=== PATIENT | male | born 1960 ===

== ENCOUNTER 2016-11-09 12:23 | Inpatient (IN) | payer OTHER ==
[~2016-11-09] VITALS: Ht 182.9 cm; Wt 63.5 kg
[2016-11-09 14:17] VITALS: BP 123/83
[2016-11-09] MEDS ORDERED: AMANTADINE PO (16:05)
[2016-11-09] MEDS ORDERED: aspirin PO (16:09)
[2016-11-09] MEDS ORDERED: atorvastatin PO (16:11)
[2016-11-09] MEDS ORDERED: lovenox SUBCUT (16:13)
[2016-11-09] MEDS ORDERED: metoprolol PO (16:15)
[2016-11-09] MEDS ORDERED: seroquel PO (16:20)
[2016-11-09] MEDS ORDERED: thiamine PO (16:21)
[2016-11-09] MEDS ORDERED: hydralazine PO (16:24)
--- NOTE | 2016-11-09 19:30 | NUR ---
Received report from WILLIAM Gooden. Received patient standing next to the bed. Patient is alert and verbally responsive. Able to make needs known. Denies any pain and discomfort at this time. No acute distress noted. No SOB. Patient is on room air. Reminded patient to becareful and to call for help when assistance is needed. Verbalized understanding. All needs attended to promptly. Call light is within reach. Bed in low position. Will continue to monitor.
[2016-11-09 20:00] VITALS: BP 133/88
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
[2016-11-09] MEDS: ATORVASTATIN 40 MG TABLET PO SCH (20:56)
[2016-11-09] MEDS: AMANTADINE HCL 100 MG CAPSULE PO SCH (20:56)
[2016-11-09] MEDS: QUETIAPINE FUMARATE 200 MG TABLET PO SCH (20:57)
[2016-11-09] MEDS: METOPROLOL TARTRATE 50 MG TABLET PO SCH (20:57)
[2016-11-09] MEDS ORDERED: QUETIAPINE FUMARATE 200 MG TABLET PO SCH (21:00)
[2016-11-09] MEDS: Z GUARD REMEDY PASTE 57 GM TUBE TOP SCH (21:06)
--- NOTE | 2016-11-10 06:35 | NUR ---
Patient awake at this time. Slept comfortably throughout the night. No c/o pain and discomfort. No acute distress. No SOB. All needs attended to promptly. Call light within reach. Will continue to monitor.
[2016-11-10 06:58] LABS: BASOPHILS % (AUTO) 0.5 % (0.0-2.0); EOSINOPHILS # (AUTO) 0.1 K/uL (0.0-0.7); HEMATOCRIT 35.6 % (40-50); HEMOGLOBIN 12.1 G/DL (14.0-18.0); LYMPHOCYTES # (AUTO) 0.7 K/UL (0.8-4.8); LYMPHOCYTES % (AUTO) 13.9 % (20.5-51.5); MEAN CORPUSCULAR HEMOGLOBIN 31.1 UUG (27.0-31.0); MEAN CORPUSCULAR HGB CONC 34 g/dL (32.0-37.0); MEAN CORPUSCULAR VOLUME 91.8 FL (82.0-92.0); MONOCYTES # (AUTO) 0.6 K/UL (0.1-1.30); NEUTROPHILS # (AUTO) 3.8 K/UL (1.8-8.9); NEUTROPHILS % (AUTO) 72.6 % (38.5-71.5); PLATELET COUNT (AUTO) 109 K/UL (150-450); RED BLOOD CELL COUNT(AUTO) 3.88 MIL/UL (4.7-6.1); WHITE BLOOD COUNT (AUTO) 5.2 K/UL (4.0-11.2)
[2016-11-10 07:17] LABS: THYROID STIMULATING HORMONE 4.202 mIU/mL (0.358-3.740)
[2016-11-10 07:45] LABS: ALBUMIN 3.3 g/dL (3.4-5.0); BILIRUBIN,TOTAL 0.6 mg/dL (0.2-1.0); CREATININE 1.2 mg/dL (0.6-1.3); PHOSPHOROUS 4.5 mg/dL (2.5-4.9); POTASSIUM 4.3 mmol/L (3.5-5.1); TOTAL PROTEIN, SERUM 6.8 g/dL (6.4-8.2)
[2016-11-10] MEDS: THIAMINE HCL 100 MG TABLET PO SCH (08:43)
[2016-11-10] MEDS: AMANTADINE HCL 100 MG CAPSULE PO SCH ×2 (08:43→21:01)
[2016-11-10] MEDS: ASPIRIN 325 MG TABLET PO SCH (08:43)
[2016-11-10] MEDS: QUETIAPINE FUMARATE 200 MG TABLET PO SCH ×2 (08:43→21:02)
[2016-11-10] MEDS: METOPROLOL TARTRATE 50 MG TABLET PO SCH ×2 (08:48→21:02)
[2016-11-10] MEDS: Z GUARD REMEDY PASTE 57 GM TUBE TOP SCH ×2 (08:49→21:03)
[2016-11-10] MEDS ORDERED: ASPIRIN 325 MG PO SCH (09:00)
[2016-11-10] MEDS ORDERED: AMANTADINE 100 MG PO SCH (09:00)
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
--- NOTE | 2016-11-10 19:30 | NUR ---
Received report from WILLIAM Gooden. Received patient in his room ambulating. Alert and verbally responsive. Able to make needs known. Patient speaks very fast. No c/o pain and discomfort at this time. No acute distress. No SOB. On room air. Kept clean and dry. All needs attended to promptly. Call light within reach. Will continue to monitor.
[2016-11-10 20:00] VITALS: BP 123/79
[2016-11-10] MEDS: ATORVASTATIN 40 MG TABLET PO SCH (21:02)
--- NOTE | 2016-11-11 06:00 | NUR ---
Patient awake at this time. Laying in bed. Slept comfortably through out the night. Denies any pain and discomfort at this time. No acute distress. No SOB. Kept clean and dry. All needs attended to promptly. Bed in low position. Call light within reach. Will continue to monitor.
[2016-11-11 08:03] VITALS: BP 137/95
--- NOTE | 2016-11-11 08:20 | NUR ---
Received patient up in bed. Verbally hyperactive. Verbalizes wanting to go home to . Has been going out of bed and room often. Ensured safety. Is cooperative with medications. Will follow up psychiatric consult as ordered.
[2016-11-11] MEDS: AMANTADINE HCL 100 MG CAPSULE PO SCH ×2 (08:41→21:18)
[2016-11-11] MEDS: QUETIAPINE FUMARATE 200 MG TABLET PO SCH (08:41)
[2016-11-11] MEDS: ASPIRIN 325 MG TABLET PO SCH (08:41)
[2016-11-11] MEDS: THIAMINE HCL 100 MG TABLET PO SCH (08:42)
[2016-11-11] MEDS: METOPROLOL TARTRATE 50 MG TABLET PO SCH ×2 (08:42→21:17)
[2016-11-11] MEDS: Z GUARD REMEDY PASTE 57 GM TUBE TOP SCH ×2 (08:43→21:18)
[2016-11-11] MEDS ORDERED: QUETIAPINE FUMARATE 200 MG TABLET PO SCH (13:00)
[2016-11-11] MEDS: DIVALPROEX 250 MG TABLET.DR PO SCH ×2 (13:47→18:06)
[2016-11-11] MEDS: QUETIAPINE FUMARATE 100 MG TABLET PO SCH ×2 (13:48→18:05)
--- NOTE | 2016-11-11 15:00 | NUR ---
Patient asleep at this time. No s/s of distress. Call light within reach. Ensured safety.
--- NOTE | 2016-11-11 15:43 | NUR ---
IDT MEETING 11/11/16
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
[2016-11-11 20:19] VITALS: BP 112/71
[2016-11-11] MEDS: ATORVASTATIN 40 MG TABLET PO SCH (21:16)
--- NOTE | 2016-11-12 06:00 | NUR ---
PATIENT WAS ABLE TO SLEEP THE WHOLE NIGHT AFTER HIS EVENING MEDS. LESS TALKATIVE AT THIS TIME. NO C/O PAIN. RESTING COMFORTABLY.CALL LIGHT WITHIN REACH.
--- NOTE | 2016-11-12 07:00 | NUR ---
PT IS LAYING IN BED COMFORTABLY. NO S/S OF RESPIRATORY DISTRESS NOTED. ALL SAFETY NEEDS ARE MET. WILL CONTINUE TO MONITOR.
[2016-11-12 07:30] VITALS: BP 123/88
[2016-11-12] MEDS: Z GUARD REMEDY PASTE 57 GM TUBE TOP SCH ×2 (08:58→20:43)
[2016-11-12] MEDS: ASPIRIN 325 MG TABLET PO SCH (08:59)
[2016-11-12] MEDS: QUETIAPINE FUMARATE 100 MG TABLET PO SCH ×3 (09:02→17:06)
[2016-11-12] MEDS: AMANTADINE HCL 100 MG CAPSULE PO SCH ×2 (09:02→20:41)
[2016-11-12] MEDS: DIVALPROEX 250 MG TABLET.DR PO SCH ×3 (09:03→17:06)
[2016-11-12] MEDS: THIAMINE HCL 100 MG TABLET PO SCH (09:04)
[2016-11-12] MEDS: METOPROLOL TARTRATE 50 MG TABLET PO SCH ×2 (09:13→20:43)
[2016-11-12 11:20] VITALS: BP 123/88
--- NOTE | 2016-11-12 19:20 | NUR ---
NO CHANGES NOTED. PT GETS AGITATED AT TIMES, PT IS COOPERATIVE WITH NURSING TREATMENT AND INTERVENTIONS. DR. EDMONDS EVALUATED THE PT. NO S/S OF RESPIRATORY DISTRESS NOTED. NO PAIN REPORTED. ALL SAFETY NEEDS ARE MET.
--- NOTE | 2016-11-12 19:30 | NUR ---
RECEIVED PATIENT SLEEPING SOUNDLY IN NAD. RESPIRATIONS EVEN AND DEEP.ALLOWED TO SLEEP. LEOPOLDO LIGHT WITHIN REACH
[2016-11-12] MEDS: ATORVASTATIN 40 MG TABLET PO SCH (20:41)
[2016-11-12 21:39] VITALS: BP 115/71
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
[2016-11-13 09:14] VITALS: BP 122/76
[2016-11-13] MEDS: THIAMINE HCL 100 MG TABLET PO SCH (10:23)
[2016-11-13] MEDS: QUETIAPINE FUMARATE 100 MG TABLET PO SCH (10:24)
[2016-11-13] MEDS: METOPROLOL TARTRATE 50 MG TABLET PO SCH ×2 (10:25→20:55)
[2016-11-13] MEDS: DIVALPROEX 250 MG TABLET.DR PO SCH (10:25)
[2016-11-13] MEDS: ASPIRIN 325 MG TABLET PO SCH (10:26)
[2016-11-13] MEDS: AMANTADINE HCL 100 MG CAPSULE PO SCH ×2 (10:32→20:55)
[2016-11-13] MEDS: Z GUARD REMEDY PASTE 57 GM TUBE TOP SCH ×2 (12:51→20:56)
[2016-11-13] MEDS ORDERED: DIVALPROEX 250 MG TABLET.DR PO SCH (13:00)
[2016-11-13] MEDS ORDERED: QUETIAPINE FUMARATE 100 MG TABLET PO SCH (13:00)
[2016-11-13] MEDS: DIVALPROEX 500 MG TABLET.DR PO SCH ×2 (13:45→18:54)
[2016-11-13] MEDS: QUETIAPINE FUMARATE 200 MG TABLET PO SCH ×2 (13:46→18:54)
[2016-11-13 20:34] VITALS: BP 129/78
[2016-11-13] MEDS: ATORVASTATIN 40 MG TABLET PO SCH (20:55)
[2016-11-14 08:00] VITALS: BP 116/79
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
[2016-11-14 08:11] LABS: BASOPHILS % (AUTO) 0.4 % (0.0-2.0); EOSINOPHILS # (AUTO) 0.1 K/uL (0.0-0.7); EOSINOPHILS % (AUTO) 1.9 % (0.0-7.0); HEMATOCRIT 35.4 % (40-50); HEMOGLOBIN 11.7 G/DL (14.0-18.0); LYMPHOCYTES # (AUTO) 0.6 K/UL (0.8-4.8); MEAN CORPUSCULAR HGB CONC 33 g/dL (32.0-37.0); MEAN CORPUSCULAR VOLUME 90.7 FL (82.0-92.0); MONOCYTES # (AUTO) 0.3 K/UL (0.1-1.30); MONOCYTES % (AUTO) 7.9 % (0.0-11.0); NEUTROPHILS # (AUTO) 2.5 K/UL (1.8-8.9); NEUTROPHILS % (AUTO) 73.8 % (38.5-71.5); PLATELET COUNT (AUTO) 141 K/UL (150-450); RED BLOOD CELL COUNT(AUTO) 3.91 MIL/UL (4.7-6.1); RED CELL DISTRIBUTION WIDTH 13.8 % (11.5-14.5); WHITE BLOOD COUNT (AUTO) 3.5 K/UL (4.0-11.2)
[2016-11-14] MEDS: AMANTADINE HCL 100 MG CAPSULE PO SCH ×2 (08:20→20:34)
[2016-11-14] MEDS: THIAMINE HCL 100 MG TABLET PO SCH (08:20)
[2016-11-14] MEDS: QUETIAPINE FUMARATE 200 MG TABLET PO SCH ×3 (08:20→16:53)
[2016-11-14] MEDS: DIVALPROEX 500 MG TABLET.DR PO SCH ×3 (08:20→16:53)
[2016-11-14] MEDS: ASPIRIN 325 MG TABLET PO SCH (08:20)
[2016-11-14 08:23] LABS: ALBUMIN 3.6 g/dL (3.4-5.0); BILIRUBIN,TOTAL 0.6 mg/dL (0.2-1.0); CALCIUM 8.9 mg/dL (8.5-10.1); POTASSIUM 4.1 mmol/L (3.5-5.1); TOTAL PROTEIN, SERUM 7.3 g/dL (6.4-8.2)
[2016-11-14] MEDS: METOPROLOL TARTRATE 50 MG TABLET PO SCH ×2 (08:28→20:34)
[2016-11-14] MEDS: Z GUARD REMEDY PASTE 57 GM TUBE TOP SCH ×2 (09:00→20:34)
[2016-11-14 16:18] VITALS: BP 109/71
--- NOTE | 2016-11-14 18:30 | NUR ---
Pt is in no acute distress. Distress call light is within reach.
--- NOTE | 2016-11-14 20:00 | NUR ---
PT ALERT. NO DISTRESS NOTED. FLIGHT OF IDEAS, RAMBLING. REORIENTED TO UNIT. COMPLIANT WITH NURSING CARE AND EDUCATED ON MEDICATIONS. SAFETY MAINTAINED. CALL LIGHT WITHIN REACH. WILL CONTINUE TO MONITOR.
[2016-11-14] MEDS: ATORVASTATIN 40 MG TABLET PO SCH (20:34)
[2016-11-14 22:25] VITALS: BP 116/76
--- NOTE | 2016-11-15 06:54 | NUR ---
PT RESTING IN BED. NO DISTRESS NOTED. SLEPT WELL THROUGHOUT THE NIGHT. SAFETY MAINTAINED. CALL LIGHT WITHIN REACH.
--- NOTE | 2016-11-15 07:23 | NUR ---
Patient received from operations supervisor 2nd shift, resting comfortably in bed. No signs of acute distress noted, respirations even and unlabored. O2 sat WNL on RA, VS WNL. No other verbalized needs at this time. Safety and fall precautions maintained, call light within reach.
[2016-11-15 08:07] VITALS: BP 122/76
[2016-11-15] MEDS: DIVALPROEX 500 MG TABLET.DR PO SCH ×2 (08:33→13:44)
[2016-11-15] MEDS: ASPIRIN 325 MG TABLET PO SCH (08:33)
[2016-11-15 08:34] VITALS: BP 122/76
[2016-11-15] MEDS: AMANTADINE HCL 100 MG CAPSULE PO SCH (08:34)
[2016-11-15] MEDS: QUETIAPINE FUMARATE 200 MG TABLET PO SCH ×2 (08:34→13:45)
[2016-11-15] MEDS: THIAMINE HCL 100 MG TABLET PO SCH (08:34)
[2016-11-15] MEDS: METOPROLOL TARTRATE 50 MG TABLET PO SCH (08:34)
[2016-11-15] MEDS: Z GUARD REMEDY PASTE 57 GM TUBE TOP SCH (08:35)
--- NOTE | 2016-11-15 12:05 | NUR ---
Received orders to discharge from Dr. Carrera and immigration case manager Hailey. Verified with patient, address given by patient. Ambulance transport arranged by immigration case manager, to be transported to [address] [place] [address]. Verified with and patient's friend. VS WNL, ambulatory. No signs of acute distress noted, respirations even and unlabored. Patient verbalizes understanding of discharge plan. No other needs at this time. Ambulance to [facility] at 1400.
== END 2016-11-15 13:30 | disposition home health service (06) | DRG 862 ==
PROVIDERS: ADMIT Physical Medicine & Rehabilitation Pain Medicine; ATTEND Physical Medicine & Rehabilitation Pain Medicine
DX: S06.5X0D Traumatic subdural hemorrhage without loss of consciousness, subsequent encounter (principal); D69.6 Thrombocytopenia, unspecified; F03.90 Unspecified dementia, unspecified severity, without behavioral disturbance, psychotic disturbance, mood disturbance, and anxiety; K57.32 Diverticulitis of large intestine without perforation or abscess without bleeding; K74.60 Unspecified cirrhosis of liver; S02.0XXD Fracture of vault of skull, subsequent encounter for fracture with routine healing; S06.6X0D Traumatic subarachnoid hemorrhage without loss of consciousness, subsequent encounter; S27.321D Contusion of lung, unilateral, subsequent encounter; V03.19 Pedestrian with other conveyance injured in collision with car, pick-up truck or van in traffic accident; N40.0 Benign prostatic hyperplasia without lower urinary tract symptoms; I10 Essential (primary) hypertension; I48.0 Paroxysmal atrial fibrillation; D64.9 Anemia, unspecified; Z98.890 Other specified postprocedural states; F29 Unspecified psychosis not due to a substance or known physiological condition; Z72.89 Other problems related to lifestyle; F41.9 Anxiety disorder, unspecified; F31.9 Bipolar disorder, unspecified
CPT/HCPCS: 36415; 70030-TC; 80164; 82306; 83735; 84100; 84153; 84443; 85025; 92506; 97001; 97110; 97112; 97116; 97530; 97535; A4663; J3490